=== PATIENT | male | born 1985 | race Caucasian/White ===

== ENCOUNTER 2023-03-14 20:48 | Emergency (ER) | payer SELFPAY ==
[~2023-03-14] VITALS: Ht 177.8 cm; Wt 87.0 kg
[2023-03-14 20:54] VITALS: O2SAT 99
[2023-03-14 21:00] VITALS: BP 160/79; PULSE 104; RESP 18; TEMP 97.9
== END 2023-03-14 21:59 | disposition home or self-care (01) ==
LOC: ER 20:48
DX: R00.2 Palpitations (principal)
CPT/HCPCS: 99283